=== PATIENT | female | born 1990 | race Caucasian/White ===

== ENCOUNTER 2018-11-23 10:34 | Emergency (ER) | payer OTHER ==
[2018-11-23 11:07] LABS: BILIRUBIN,URINE NEGATIVE (NEGATIVE); GLUCOSE, URINE (UA) NEGATIVE (NEGATIVE); KETONES,URINE (UA) NEGATIVE (NEGATIVE); LEUKOCYTE ESTERASE, URINE LARGE (NEGATIVE); NITRITE,URINE NEGATIVE (NEGATIVE); OCCULT BLOOD,URINE MODERATE (NEGATIVE); PROTEIN,URINE TRACE mg/dL (NEGATIVE); UROBILINOGEN,URINE 0.2 (NORMAL) E.U./dL (NORMAL)
[2018-11-23 11:09] LABS: CLARITY,URINE CLOUDY (CLEAR)
[2018-11-23 11:15] LABS: SQUAMOUS EPITHELIAL CELL,UR FEW Squamous (<= Few)
[2018-11-23 11:16] LABS: BACTERIA,URINE Few /HPF (None Seen); WBC CLUMPS,URINE PRESENT
--- NOTE | 2018-11-23 11:29 | ED Physician Documentation ---
PD HPI FEMALE - Stated complaint Stated Complaint: FEMALE /ABD PX - Chief complaint Chief Complaint: General - History obtained from History obtained from: Patient - History of Present Illness Timing - onset: How many weeks ago (1) Timing - duration: Weeks (1) Timing - details: Gradual onset, Waxing and waning Associated symptoms: Fever (yesterday), Back pain (the past day or so), Dysuria, Urinary frequency Contributing factors: No: Exposed to STD Similar symptoms before: Diagnosis (UTI) Recently seen: Not recently seen Review of Systems Constitutional: reports: Fever. denies: Myalgias Nose: denies: Rhinorrhea / runny nose, Congestion Throat: denies: Sore throat Respiratory: denies: Cough GI: denies: Vomiting, Diarrhea : reports: Dysuria, Frequency. denies: Discharge, Missed period Skin: denies: Rash, Lesions PD PAST MEDICAL HISTORY - Past Medical History Past Medical History: Yes Cardiovascular: None Respiratory: None Neuro: Migraines Endocrine/Autoimmune: None GI: None DOCTOR OSTEOPATHIC: None : None HEENT: None Psych: None Musculoskeletal: None Derm: None - Past Surgical History Past Surgical History: No - Present Medications Home Medications: Ambulatory Orders Medication Instructions Recorded Confirmed Naproxen 375 mg PO BID #20 tablet 11/23/18 Ondansetron Odt [Zofran] 4 mg TL Q6H PRN #10 tablet 11/23/18 Phenazopyridine HCl [Pyridium] 200 mg PO TID PRN #6 tablet 11/23/18 Sulfamethox/Trimeth 800/160 1 each PO BID #16 tablet 11/23/18 [Bactrim Ds 800/160] - Allergies Allergies/Adverse Reactions: Allergies Allergy/AdvReac Type Severity Reaction Status Date / Time No Known Drug Allergies Allergy Verified 11/23/18 10:57 - Social History Does the pt smoke?: No Smoking Status: Never smoker Does the pt drink ETOH?: Yes ETOH Use: Beer, Liquor Does the pt have substance abuse?: No Substance Use and Type: Marijuana - Immunizations Immunizations are current?: Yes - POLST Patient has POLST: No PD ED PE NORMAL - Vitals Vital signs reviewed: Yes - General General: Alert and oriented X 3, No acute distress, Well developed/nourished - Cardiac Cardiac: RRR, No murmur - Respiratory Respiratory: Clear bilaterally - Abdomen Abdomen: Normal bowel sounds, Soft, Non tender, Non distended, No organomegaly - Female Female : Deferred - Rectal Rectal: Deferred - Back Back: No spinal TTP, Other (mild CVA tenderness left side) - Derm Derm: Normal color, Warm and dry, No rash - Neuro Neuro: Alert and oriented X 3, No motor deficit, Normal speech Results - Vitals Vitals: Oxygen O2 Source Room air - Labs Labs: Microbiology 11/23/18 11:01 Urine Culture - Final Urine,Clean Catch Staphylococcus Saprophyticus Laboratory Tests 11/23/18 11:01 Urine Color YELLOW Urine Clarity CLOUDY Urine pH 6.0 Ur Specific Butler 1.020 Urine Protein TRACE Urine Glucose (UA) NEGATIVE Urine Ketones NEGATIVE Urine Occult Blood MODERATE H Urine Nitrite NEGATIVE Urine Bilirubin NEGATIVE Urine Urobilinogen 0.2 (NORMAL) Ur Leukocyte Esterase LARGE H Urine RBC 6-10 H Urine WBC >25 H Urine WBC Clumps PRESENT Ur Squamous Epith Cells FEW Squamous Urine Bacteria Few Ur Microscopic Review INDICATED Urine Culture Comments INDICATED PD MEDICAL DECISION MAKING - ED course Complexity details: considered differential (She has initially UTI symptoms without any vaginal symptoms and is now having some flank pain and a feeling of fevers and nausea. This still sounds urinary tract. Her urinalysis is consistent enough with UTI and will treat her that way. She does not look septic. She is able to keep fluids down. She can be treated outpatient therapy and is stable for discharge.), d/w patient Departure - Departure Disposition: 01 Home, Self Care Clinical Impression: UTI (urinary tract infection) Qualifiers: Urinary tract infection type: acute pyelonephritis Qualified Code(s): N10 - Acute pyelonephritis Condition: Stable Record reviewed to determine appropriate education?: Yes Instructions: ED UTI Cystitis Female Prescriptions: Naproxen 375 mg PO BID #20 tablet Ondansetron Odt [Zofran] 4 mg TL Q6H PRN #10 tablet PRN Reason: Nausea / Vomiting Phenazopyridine HCl [Pyridium] 200 mg PO TID PRN #6 tablet PRN Reason: dysuria Sulfamethox/Trimeth 800/160 [Bactrim Ds 800/160] 1 each PO BID #16 tablet Discharge Date/Time: 11/23/18 12:14
[2018-11-23] MEDS ORDERED: NAPROXEN 250 MG TABLET PO STA (11:48)
[2018-11-23] MEDS ORDERED: ONDANSETRON ODT 4 MG TABLET TL STA (11:48)
[2018-11-23] MEDS ORDERED: SULFAMETH/TRIMETH DS 800/160 MG TABLET PO STA (11:48)
[2018-11-23 12:03] VITALS: BP 133/83
--- NOTE | 2018-11-26 05:41 | ED Physician Documentation ---
ED Addendum - Addendum Addendum: 11/26/18 05:39 Chart accessed for culture review. Urine cultures out staphylococcus sa prophyticus; neither bactrim nor any sulfa appears on sensitivities listed and thus I recommend discontinue the bactrim and start macrobid 100mg, 1 tab PO BID x 7 days (14 tablets) 11/26/18 05:40 this organism is sensitive to nitrofurantoin per the sensitivities tested against
== END 2018-11-23 12:14 | disposition home or self-care (01) ==
LOC: ED 10:34
DX: N10 Acute pyelonephritis (principal)
CPT/HCPCS: 81001; 87077; 87086; 87181; 99283; A9270; Q0162; 81003

== ENCOUNTER 2020-11-23 14:18 | Outpatient (CLI) | payer OTHER | END 2020-11-23 14:19 | disposition home or self-care (01) | LOC: COV 14:18 | PROVIDERS: ATTEND Family Medicine | DX: Z20.822 Contact with and (suspected) exposure to COVID-19 (principal) ==

== ENCOUNTER 2023-02-14 08:00 | Outpatient (CLI) | payer BC | END 2023-02-14 23:59 | disposition home or self-care (01) | LOC: LAB.S 08:00 | PROVIDERS: ATTEND Physician Assistant Medical | DX: R10.32 Left lower quadrant pain (principal) | CPT/HCPCS: 87086 ==

== ENCOUNTER 2023-10-22 08:00 | Outpatient (CLI) | payer BC | END 2023-10-22 23:59 | disposition home or self-care (01) | LOC: LAB.S 08:00 | PROVIDERS: ATTEND Physician Assistant | DX: J02.9 Acute pharyngitis, unspecified (principal) | CPT/HCPCS: 87070 ==

== ENCOUNTER 2024-01-27 07:00 | Outpatient (CLI) | payer BC | END 2024-01-27 23:59 | disposition home or self-care (01) | LOC: LAB.S 07:00 | PROVIDERS: ATTEND Registered Nurse | DX: R30.0 Dysuria (principal) | CPT/HCPCS: 87086; 87181 ==

== ENCOUNTER 2024-07-27 15:01 | Outpatient (CLI) | payer BC | END 2024-07-27 15:02 | disposition home or self-care (01) | LOC: LAB.S 15:01 | PROVIDERS: ATTEND Registered Nurse | DX: R30.0 Dysuria (principal) | CPT/HCPCS: 87086 ==